=== PATIENT | male | born 1940 | race Caucasian/White ===

== ENCOUNTER → 2017-09-05 | Day surgery (SDC) | payer MEDICARE, BC ==
[~2017-09-05] MED LIST: CALC-197 PO; ENOX40P SQ; GENTAMICIN SULFATE 80 MG/2 ML VIAL ONE; LACTATED RINGER'S 1000 ML INJ 1,000 ML ONE; MORPHINE SULFATE 2 MG/ML INJ ONE; OMPR20CCR PO; OXYC5 PO; PRAV40TA2 PO; PROPOFOL 200 MG/20 ML AMP IV ONE; ZETI10TA5 PO
--- NOTE | 2017-09-05 17:20 | TN ---
cc: Torres Tate MD DATE OF SURGERY: 09/05/2017 DATE OF PROCEDURE: 09/05/2017 PREOPERATIVE DIAGNOSIS: Left distal ureteral calculus (ICD-10 code of N20.1). POSTOPERATIVE DIAGNOSIS: Left distal ureteral calculus (ICD-10 code of N20.1). PROCEDURE PERFORMED: Cystourethroscopy with a left ureteroscopic holmium laser lithotripsy and stone basket manipulation (CPT code 68682). INDICATIONS FOR PROCEDURE: Mr. Thomas is a 77-year-old gentleman who has failed medical expulsive therapy for a 4 x 6 mm distal left ureteral calculus, who presents now for definitive treatment. FINDINGS: A normal anterior urethra. Posterior urethra shows mild bilobular hypertrophy with an open bladder neck. Ureteral orifice normal size, shape and position, effluxing clear urine bilaterally. There is no significant trabeculation, diverticula or cellules. No tumors, masses, or abnormal mucosa of the bladder itself. The ureteroscopic evaluation shows a 6 x 4 mm montano colored stone in the distal left ureter approximately a 1 cm or 2 from the ureterovesical junction and some dilation of the collecting system proximally. DESCRIPTION OF PROCEDURE: The procedure as well as risks and benefits were explained to the patient, an informed consent was obtained, and the patient was taken to the major operative theater where he was placed in supine position. The patient was identified as well as the operative side. A universal timeout was performed in standard fashion. At this time, general anesthetic and prophylactic intravenous antibiotics consisting of gentamicin 80 mg was administered. After adequate anesthetic, he was placed in the low dorsal lithotomy position and prepped and draped in the usual sterile fashion. At this time, a 22.5-Belgian cystoscope with a 30-degree lens was inserted into urethra and bladder with the above findings. Attention was then directed to the left ureteral orifice, where under both direct vision and fluoroscopic guidance, a 0.035 inch hybrid wire was passed easily up the ureter into the renal pelvis. A second 0.035 inch Galvez wire was placed additionally as a working wire up the ureter into the renal pelvis under fluoroscopic guidance. The cystoscope was removed leaving the guidewire both wires in place. The safety wire was attached to the drape. With the working wire, a semi-rigid mini ureteroscope was then backloaded onto the ureteroscope and traversing the urethra and into the bladder. Upon entering the bladder, the ureteroscope was then placed between the wires and up the ureter to where the stone was engaged. At this time, the working wire was removed and a 365 micron holmium laser fiber was placed and at a setting of 0.8 joules at 10 Hz, holmium laser lithotripsy was performed until the stone was fragmented into multiple small pieces. Then, using a ZeroTip Nitinol basket, several passes were made and the fragments were dropped into the bladder. The last pass, the scope was placed to the limits into the proximal ureter. No additional stone was identified. There was minimal, if any, stone debris and no trauma to the ureter. The decision was made not to leave a stent. At this time, the ureteroscope was removed and a cystoscope was placed back into the bladder. There was a mild amount of bleeding from the orifice, but it was open and effluxing urine. At this time, the stones that were fragmented were then irrigated out and sent for final crystallographic analysis. Systematic survey of the bladder was then performed again and the bladder was decompressed and the cystoscope removed. The patient tolerated the procedure well, emerged from anesthetic without difficulty and transferred to recovery room in stable condition to be discharged home when criteria is met. There were no obvious complications. MD CANDELARIO Regalado/ASIA , 04:53 PM , 05:19 PM
== END | disposition home or self-care (01) ==
LOC: ESDC 11:59
PROVIDERS: ATTEND Urology
DX: N20.1 Calculus of ureter (principal)
CPT/HCPCS: 00918; 52353; 76000; C1769; J1580; J2270; J3010; J7120